=== PATIENT | female | born 1950 | race Caucasian/White ===

== ENCOUNTER → 2023-09-24 09:37 | Outpatient (REF) | payer MEDICARE, SELFPAY | LOC: RCS 09:37 | PROVIDERS: ATTENDING PHYSICIAN Internal Medicine Cardiovascular Disease; FAMILY PHYSICIAN Internal Medicine | DX: I34.0 Nonrheumatic mitral (valve) insufficiency (principal) | CPT/HCPCS: 93306 ==

== ENCOUNTER → 2024-02-12 08:07 | Outpatient (REF) | payer MEDICARE, SELFPAY | LOC: HWWDC 08:07 | PROVIDERS: ATTENDING PHYSICIAN Obstetrics & Gynecology Gynecology; PRIMARYCARE PHYSICIAN Internal Medicine | DX: Z12.31 Encounter for screening mammogram for malignant neoplasm of breast (principal) | CPT/HCPCS: 77063; 77067 ==

== ENCOUNTER → 2024-09-16 09:26 | Outpatient (REF) | payer MEDICARE, SELFPAY | LOC: HWRCS 09:26 | PROVIDERS: ATTENDING PHYSICIAN Internal Medicine Cardiovascular Disease; FAMILY PHYSICIAN Internal Medicine | DX: I34.0 Nonrheumatic mitral (valve) insufficiency (principal) | CPT/HCPCS: 93306 ==

== ENCOUNTER → 2024-12-29 09:26 | Outpatient (REF) | payer MEDICARE, SELFPAY | LOC: HWRAD 09:26 | PROVIDERS: ATTENDING PHYSICIAN Internal Medicine | DX: K82.8 Other specified diseases of gallbladder (principal) | CPT/HCPCS: 76700 ==